=== PATIENT | male | born 1995 | race Caucasian/White ===

== ENCOUNTER 2023-07-24 15:05 | Emergency (ER) | payer BC, SELFPAY ==
[2023-07-24 15:10] VITALS: BP 152/94; PULSE 106; RESP 18; TEMP 36.2; O2SAT 100; BMI 36.5
--- NOTE | 2023-07-24 15:14 | ED.GENADULT ---
HPI - General Adult General Date Seen: 07/24/23 Chief complaint: GI Bleed Stated complaint: Blood in stool Time Seen by Provider: 07/24/23 15:13 History of Present Illness HPI narrative: 28-year-old male with no significant past medical history presenting to the ER today with bright red blood per rectum. He notes that he has had intermittent rectal bleeding off and on for about 6 months. He says typically bleeding happens once every couple weeks or once a month. No other symptoms with that. No rectal pain. No abdominal pain no fever. No blood loss. No vomiting. He says the blood sometimes is just red blood with small clots in the toilet water and sometimes is around the stool and sometimes mixed in. He has already had workup through the [facility] including an outpatient workup with labs. He had a colonoscopy about 1 month ago that was apparently normal. He had biopsies that were also normal with a colonoscopy. He has had increase in his amount of bleeding lately. He had a couple of bloody stool episodes on Sunday and again on Sunday and again today. This is not severe. He only a few tsp of blood per stool. However he has never had so many frequent bloody stools and multiple consecutive days over the past 6 months. He is also having some new left upper quadrant abdominal pain. No lightheadedness or dizziness. He is not coagulopathic. No anticoagulants. No regular meds Related Data Home Medications Medication Instructions Recorded Confirmed dextroamphetamine-amphetamine ER 1 cap PO QAM 07/07/22 07/24/23 20 mg 24hr capsule,extend release escitalopram oxalate 20 mg tablet 20 mg PO DAILY 07/07/22 07/24/23 duloxetine 60 mg capsule,delayed 60 mg PO DAILY 07/24/23 07/24/23 release Allergies Allergy/AdvReac Type Severity Reaction Status Date / Time No Known Drug Allergies Allergy Verified 07/24/23 15:16 [facility] Social History Smoking Status: Never smoker Do you use any of these nicotine containing products: None How often do you have a drink containing alcohol: never How often do you have six or more drinks on one occasion: Never AUDIT-C Alcohol total score: 0 Non-prescribed substance use: denies use service: No Exam Narrative: Exam Narrative: Constitutional: Appears well-developed and well-nourished. Alert. Conversant. Non toxic. HENT: Head: Atraumatic. Nose: Nose normal. Mouth/Throat: Oral mucosa is clear and moist. no trismus. Pharynx normal. Eyes: Conjunctivae normal. EOM normal. Pupils equal, round, and reactive to light. No scleral icterus. Neck: Normal range of motion. Neck supple. No tracheal deviation present. Cardiovascular: Normal rate, regular rhythm. No gallop. No friction rub. No murmur heard. Symmetric radial artery pulses Pulmonary/Chest: Effort normal. No stridor. No respiratory distress. No wheezes. No rales. No rhonchi . No tenderness. Abdominal: Soft. Bowel sounds normal. No distension. No mass. In left upper quadrant tenderness. No rebound. No guarding. Rectal: Normal gluteal cleft. No masses or hemorrhoids or abscesses. There is a small fissure in the posterior midline, just to the left of the midline. I am able to wipe will await blood off the fissure. No tenderness. Musculoskeletal: RUE: Normal range of motion. No tenderness. No deformity LUE: Normal range of motion. No tenderness. No deformity RLE: Normal range of motion. No edema. No tenderness. No deformity LLE: Normal range of motion. No edema. No tenderness. No deformity Neurological: Alert and oriented to person, place, and time. Normal strength. CN II-VII intact. No sensory deficit. GCS eye subscore is 4. GCS verbal subscore is 5. GCS motor subscore is 6. Normal coordination Skin: Skin is warm and dry. No rash noted. No pallor. Normal capillary refill. Psychiatric: Normal mood. Normal affect. Const: Vital Signs, click to edit/add: Vital Signs - 24 hr 07/24/23 15:10 Temperature 97.1 F L Pulse Rate [Right Pulse Oximeter] 106 H Respiratory Rate 18 Blood Pressure [Ri ght Upper Arm] 152/94 H Pulse Oximetry 100 Oxygen Delivery Me thod Room Air Course Vital Signs Vital signs: Initial Vital Signs Temperature 97.1 F L 07/24/23 15:10 Temperature Source Temporal Artery Scan 07/24/23 15:10 Pulse Rate 106 H 07/24/23 15:10 Respiratory Rate 18 07/24/23 15:10 Blood Pressure 152/94 H 07/24/23 15:10 Blood Pressure Mean 113 H 07/24/23 15:10 Blood Pressure Position Sitting 07/24/23 15:10 Pulse Oximetry 100 07/24/23 15:10 Oxygen Delivery Method Room Air 07/24/23 15:10 Vital Signs Temperature 97.1 F L 07/24/23 15:10 Pulse Rate 106 H 07/24/23 15:10 Respiratory Rate 18 07/24/23 15:10 Blood Pressure 152/94 H 07/24/23 15:10 Pulse Oximetry 100 07/24/23 15:10 Oxygen Delivery Method Room Air 07/24/23 15:10 Temperature 97.1 F L 07/24/23 15:10 Pulse Rate 106 H 07/24/23 15:10 Respiratory Rate 18 07/24/23 15:10 Blood Pressure 152/94 H 07/24/23 15:10 Pulse Oximetry 100 07/24/23 15:10 Oxygen Delivery Method Room Air 07/24/23 15:10 Medical Decision Making MDM Narrative Medical decision making narrative: 28-year-old male with intermittent rectal bleeding for about 6 months. He has already had outpatient workup through the [facility] that was unrevealing including a normal colonoscopy about a month ago. Apparently there was no evidence for celiac disease, Crohn's, ulcerative colitis. He is presenting to the ER today because he has noted increasing frequency of bloody stools over the past few days. Also new left upper quadrant abdominal pain. On my rectal exam here he does have a small fissure near the posterior midline which may be the source of his bleeding. However would not expect abdominal pain with a rectal fissure. The fissure may not be the sole source of symptoms. with his left upper quadrant pain we will obtain CT scan to look for other things such as a new colitis or other abnormality that may have been causing his intermittent bleeding. He was tachycardic (likely due to mild anxiety.) but not hypotensive. Hemoglobin is normal at 14.9. Nose evidence for significant blood loss. He does have a mild leukocytosis. No fever. No clear sepsis here. No evidence for colitis on CT. No diarrhea or recent suspicious food food that would raise concern for infection. No recent antibiotics raise concern for C diff. CT abdomen pelvis shows no acute inflammation of the colon or GI tract that would correlate with Crohn's, infectious colitis, or other clear GI cause for bleeding. At this point I think the patient is safe for outpatient management. Would recommend supportive care for his rectal fissure. Outpatient follow-up with [facility] for further evaluation. Precautions for return to the ER reviewed. Lab Data Labs: Lab Results 07/24/23 Range/Units 15:45 WBC 11.54 H (4.50-11.00) K/uL RBC 4.82 (4.30-5.90) m/uL Hgb 14.9 (13.5-17.5) gm/dL Hct 43.2 (37.0-53.0) % MCV 90 (80-100) fL MCH 31 (26-34) pg MCHC 35 (32-36) gm/dL RDW Coeff of Paz 12.6 (11.5-15.5) % Plt Count 340 (140-440) K/uL Neut % (Auto) 72.0 (42.0-72.0) % Lymph % (Auto) 20.7 (20-44) % [place] % (Auto) 6.5 (0.0-11.0) % Eos % (Auto) 0.3 (0.0-7.0) % Baso % (Auto) 0.3 (0.0-3.0) % Neut # (Auto) 8.30 H (1.7-7.0) K/uL Lymph # (Auto) 2.40 (0.90-2.90) K/uL [place] # (Auto) 0.80 (0.00-0.90) K/UL Eos # (Auto) 0.00 (0.00-0.50) K/uL Baso # (Auto) 0.00 (0.00-0.30) K/uL Abs Immat Gran (auto) 0.00 (0.00-0.30) K/uL Imm/Tot Granulo (auto) 0.2 % Sodium 139 (135-149) mmol/L Potassium 4.0 (3.6-5.1) mmol/L Chloride 104 (96-114) mmol/L Carbon Dioxide 27 (20-32) mmol/L Anion Gap 8 (7-15) mEq/L BUN 16 (5-24) mg/dL Creatinine 0.9 (0.5-1.5) mg/dL Estimated Creat Clear 118.22 Estimated GFR 119 ml/min Glucose 136 H (60-115) mg/dL Lactate 1.5 (0.5-1.9) mmol/L Calcium 9.9 (8.4-10.6) mg/dL Lipase 108 (23-300) U/L Imaging Data CT scan - abdomen: Attestation: I have reviewed the pertinent imaging results. My impression: IMPRESSION: No acute intra-abdominal/pelvic abnormality. Hepatic steatosis. Mild colonic stool burden. Discharge Plan Discharge Clinical Impression: Abdominal pain, acute, left upper quadrant, Rectal fissure, Acute lower gastrointestinal bleeding Patient Disposition: Home, Self-Care Condition: Stable Instructions: Rectal Bleeding (ED), Anal Fissure (ED) Additional Instructions: As we discussed, please follow-up with her doctors at the [facility] within the next 1-2 weeks. If you have any worsening episodes of bleeding, pain, fever, lightheadedness, or any problems, please return to the ER right away to be rechecked. Prescriptions: No Action dextroamphetamine-amphetamine 20 mg capsule,extended release 24hr 1 cap PO QAM escitalopram oxalate 20 mg tablet 20 mg PO DAILY duloxetine 60 mg capsule,delayed release(DR/EC) 60 mg PO DAILY Follow Up/Referrals: Provider,Not a Local [Referring] - Stand Alone Forms: [employer] Info Instructions
--- NOTE | 2023-07-24 15:34 | CT_ITS ---
Patient: PEDRITO SORIANO Facility:?[facility] Patient ID:?[id number] Site Patient ID:?[id number]. Site :?[id number] Study:?CT-Abdomen/Pelvis W/ ISOVUE 370-07/24/2023 4:45:26 PM Ordering Physician:BIANCA Final Report: INDICATION: Left upper quadrant abdominal pain, bloody stools. TECHNIQUE: CT abdomen and pelvis acquired with 100 cc Isovue 370 IV contrast. COMPARISON: None. FINDINGS: Lower chest: Unremarkable. Liver: Hepatic steatosis. No suspicious masses. Gallbladder and bile ducts: Unremarkable. No stones or inflammation. No biliary dilatation. Pancreas: Unremarkable. No mass or inflammation. Spleen: Unremarkable. Normal in size. No masses. Adrenal glands: Unremarkable. No nodules. Kidneys: Unremarkable. No suspicious masses, stones, or hydronephrosis. GI tract: Mild colonic stool burden. Normal in caliber. No sign of mass or inflammation. Normal appendix. Vasculature: Abdominal aorta is normal in caliber. Mesenteric arteries are patent. Lymph nodes: No lymphadenopathy. Peritoneum/Abdominal Wall: Unremarkable. No sign of mass or infiltration. No free air or significant free fluid. Pelvis: Unremarkable. Bones: Unremarkable for age. IMPRESSION: No acute intra-abdominal/pelvic abnormality. Hepatic steatosis. Mild colonic stool burden. Please note that all CT scans at this facility use dose modulation, iterative reconstruction, and/or weight-based dosing when appropriate to reduce radiation dose to as low as reasonably achievable. Dictated by Yrn Vazquez MD @ 07/24/2023 5:07:32 PM Signed by:?Yrn Vazquez MD @07/24/2023 5:07:32 PM (Electronic Signature)
[2023-07-24 15:52] LABS: Lactate* 1.5 mmol/L (0.5-1.9)
[2023-07-24 15:55] LABS: Basophils Percent Auto 0.3 % (0.0-3.0); Eosinophils Percent Auto 0.3 % (0.0-7.0); Hematocrit 43.2 % (37.0-53.0); Hemoglobin* 14.9 gm/dL (13.5-17.5); Immature Granulocytes Pct Auto 0.2 %; Lymphocytes Percent Auto 20.7 % (20-44); Mean Corpuscular HGB Conc 35 gm/dL (32-36); Mean Corpuscular Hemoglobin 31 pg (26-34); Mean Corpuscular Volume 90 fL (80-100); Monocytes Percent Auto 6.5 % (0.0-11.0); Platelet Count* 340 K/uL (140-440); RDW Coefficient of Variation % 12.6 % (11.5-15.5); Red Blood Count 4.82 m/uL (4.30-5.90); White Blood Count* 11.54 K/uL (4.50-11.00)
[2023-07-24 16:02] LABS: Slide Review Reflex No
[2023-07-24 16:17] LABS: Chloride* 104 mmol/L (96-114); Sodium* 139 mmol/L (135-149)
[2023-07-24 16:20] LABS: Anion Gap 8 mEq/L (7-15); Carbon Dioxide* 27 mmol/L (20-32); Creatinine* 0.9 mg/dL (0.5-1.5); Est. Creatinine Clearance* 118.22; Estimated Glomerular Filt Rate 119 ml/min
[2023-07-24 16:21] LABS: Blood Urea Nitrogen* 16 mg/dL (5-24); Calcium* 9.9 mg/dL (8.4-10.6); Glucose* 136 mg/dL (60-115); Lipase* 108 U/L (23-300)
== END 2023-07-24 17:28 | disposition home or self-care (01) ==
PROVIDERS: Emergency Provider Emergency Medicine; PCP Family Medicine
DX: K92.2 Gastrointestinal hemorrhage, unspecified (principal); K60.2 Anal fissure, unspecified
CPT/HCPCS: 36415; 74177; 80048; 83605; 83690; 85025; 99283; 99284; Q9967